=== PATIENT | female | born 1995 | race Caucasian/White ===

== ENCOUNTER 2016-08-10 06:28 | Day surgery (SDC) | payer BC ==
[~2016-08-10] VITALS: Ht 160 cm; Wt 51.3 kg
--- NOTE | ~2016-08-10 | S ---
[facility] [address] [place] [address] SURGICAL PATH RPT PROCEDURE Name: PHUONG RAINEY Room #: DEP [facility] [place] M.R.#: [id number] Admission: 08/10/16 Date of : 89 Discharge: 08/10/16 Report #: [id number] Path Case #: [id number] PATHOLOGY REPORT COLLECTION DATE: 08/10/2016 RECEIVED DATE: 08/10/2016 SUBMITTING PHYS: Dr. Surya Blevins OTHER PHYS: Dr. Soheila White SPECIMEN(S) RECEIVED: A.Right inguinal lymph node * * * * * * * * * * * * FINAL DIAGNOSIS: "Right inguinal lymph node", excisional biopsy: - Lymph node with hyperplasia; no evidence of lymphoma. (See comment) COMMENT: Sections show fragments of lymph node with overall retained but slightly distorted lymph node architecture. There are variably sized to large irregular germinal centers containing tingible body macrophages. Focal involution and follicle lysis are identified. Focal subcapsular monocytoid lymphocytes are noted. There is a mildly expanded interfollicular space by a reactive appearing lymphohistiocytic cells. Occasional small groups of histiocytes are noted; however, no granulomas are identified. No markedly atypical lymphoid cells, including Nehemiah-Janey cells, are identified. Again, no granulomas, necrosis or other infiltrative processes are seen. To confirm the flow cytometry findings and to identify cells in a tissue architectural context, properly-controlled immunohistochemical stains are performed. Block A1 PAX5: highlights B cell primary in cortical follicles and the subcortical monocytoid lymphocytes; CD3: stains admixed and interfollicular T cells; CD10: highlights the germinal centers; BCL-6: highlights the germinal centers; BCL-2: the germinal centers are non-reactive; CD23: stains residual follicular and dendritic cell meshwork; Cyclin D1: lacks diffuse nuclear staining; MUM1: highlights mildly increased medullary small cells (likely plasma cells and immunoblasts); CD68: stains the histiocytes and tingible body macrophages. [facility] [address] [place] [address] SURGICAL PATH RPT PROCEDURE Name: PHUONG RAINEY Room #: DEP [facility]..#: [id number] Admission: 08/10/16 Date of : [birth year] Discharge: 08/10/16 Report #: [id number] Path Case #: [id number] Flow cytometric immunophenotypic analysis was performed at [facility]. The diagnosis is "no flow immunophenotypic evidence of a lymphoproliferative disorder." There are 95.1% lymphocytes. Of the lymphocytes, there are 63.9% T cells with a CD4/CD8 ratio of 1.7, and no aberrant T cell antigen expression. There are 34.5% polyclonal B cells. A small subset of B cells dimly express CD10, but these are also polyclonal. B cells are polyclonal and T cells have no loss of T cell antigens. There is no flow immunophenotypic evidence of a B or T cell lymphoproliferative disorder. Please see separate flow cytometry report from [facility] ([id number]). Cytomorphologic examination of Diff-Quik stained touch imprints show a polymorphous population of lymphoid cells. The lymphocytes are predominantly small round and mature appearing with condensed chromatin and scant cytoplasm with admixed larger lymphoid cells which include germinal center cells and immunoblasts. Scattered histiocytes are noted. Admixed granulocytes and plasma cells are also seen. No markedly atypical lymphoid cells, including Nehemiah-Janey cells, are identified. Overall, the diagnosis is lymph node with hyperplasia. There is no evidence of lymphoma. While the overall appearance is nonspecific, potential etiologies include viral and other infectious processes. Again, no necrosis or granulomas are seen. Clinical correlation is recommended. The H and E stained slide is co-reviewed by Dr. Carmen Berman. The case is discussed with Jud, nurse for Dr. Surya Blevins, on 08/14/16, at 11:50 a.m. (CLW:charity; d/t: 08/14/2016) PATHOLOGIST: Марина Aguayo M.D. REPORT ELECTRONICALLY SIGNED BY: Марина Aguayo M.D. DATE/TIME: 08/14/2016 13:38 * * * * * * * * * * * * GROSS PATHOLOGY: The specimen is received in formalin labeled "Phuong Rainey, right inguinal lymph node". Received are multiple segments of pink-funk to yellow-funk lobulated tissue measuring 4.1 x 2.8 x 1.0 cm in aggregate dimensions. The specimen is submitted entirely in cassettes A1 through A3. A touch prep slide is made. A portion of the specimen was placed into RPMI solution and forwarded onto [facility] for flow cytometry studies from [facility]. ([facility]; 08/10/2016) CLINICAL HISTORY: Lymphadenopathy [facility] [address] [place] [address] SURGICAL PATH RPT PROCEDURE Name: PHUONG RAINEY Room #: [facility] Shalini.Brannon#: [id number] Admission: 08/10/16 Date of : [birth year] Discharge: 08/10/16 Report #: [id number] Path Case #: [id number] INITIAL CPT CODE(S): A; 57474, 70364, 89061, 64295, 34930, 62194, 76871, 81888, 23242, 49155 Professional services performed by [facility] at [place] [address], [place] [address] Technical services performed by [facility] at [address] [place] [address], [place] [address]. [facility] [address] [place] [address] PHONE: [phone] DIRECTOR: Ry Bailey M.D. * * * END OF REPORT * * *
--- NOTE | ~2016-08-10 | O ---
[facility] [place] [address] [place] [address] OPERATIVE REPORT Name: LINCOLN OCAMPO Room #: [place] [facility] [facility] [place] M.R.#: [id number] Admission: 08/10/16 Attend Phys: Surya Blevins MD Discharge: 08/10/16 Date of : 89 Report #: [id number] THIS REPORT FOR: //name// CC: Soheila Blevins DATE OF SERVICE: 08/10/[address] Surya Blevins. PREOPERATIVE DIAGNOSIS: Right inguinal lymphadenopathy. POSTOPERATIVE DIAGNOSIS: Right inguinal lymphadenopathy. PROCEDURE: Right inguinal excisional lymph node biopsy. SURGEON: Surya Blevins MD. ANESTHESIA: Local IV sedation. DESCRIPTION OF PROCEDURE: The patient was brought to the operating room and placed on operative table in the supine position. Sequential compression devices were in place for DVT prophylaxis. There was no indication for preoperative antibiotics. The patient underwent IV sedation. Right inguinal area was prepped and draped in a sterile fashion. Skin and subcutaneous tissue was then infiltrated with 0.5% Marcaine and 1% Xylocaine in a 1:1 mixture. A small right inguinal skin incision was then performed over these lymph nodes using a #15 scalpel blade. Hemostasis obtained using electrocautery. Dissection was carried down through subcutaneous tissue and around these lymph nodes using a clamp and electrocautery and DeBakey forceps. Approximately 3 lymph nodes were identified and dissected free. A portion of 1 lymph node was sent as a specimen to microbiology for culture and sensitivity. We sent for Gram stain, aerobic, anaerobic, AFB, fungal and viral cultures. The remaining lymph nodes were then given to the pathologist, Dr. Berman in the operating room fresh for lymphoma panel and further histology. Meticulous hemostasis was checked and obtained in the area using the electrocautery. Deep and superficial subcutaneous tissue was then reapproximated using simple interrupted 2-0 chromic sutures and the skin then closed with a running 4-0 subcuticular Vicryl stitch. The wound was then dressed with Mastisol, half inch Steri-Strips cut in half, Telfa, 4 x 4s, sponge and tape. The patient was then taken to the recovery room awake, alert and in good condition. Estimated blood loss was less than [address] [address] OPERATIVE REPORT Name: LINCOLN OCAMPO Room #: DEP [facility]..#: [id number] Admission: 08/10/16 Attend Phys: Surya Blevins MD Discharge: 08/10/16 Date of : 89 Report #: [id number] The patient tolerated procedure well. All sponge, lap and instrument counts correct times 2. <ELECTRONICALLY SIGNED> By: Surya Blevins MD 08/15/16 1200 0901 0918 Surya Blevins MD /nt
[~2016-08-10 06:28] MED LIST: NORCO 5-325 TA1 EACH PO; OCELLA 3 MG-0.1 EACH PO; TRAMADOL 50 MG50 MG
[2016-08-10 08:13] VITALS: BP 107/82
[2016-08-10] MEDS ORDERED: NORCO 5-325 TA1 EACH PO (09:05)
[2016-08-10 09:15] VITALS: BP 107/82
== END 2016-08-10 10:16 | disposition home or self-care (01) ==
LOC: OR 06:28 → TBA 06:28 → OR 09:46
DX: R59.0 Localized enlarged lymph nodes (principal)
CPT/HCPCS: 50010; 50101; 50386; 50403; 56524; 56528; 62110; 62850; 70005